=== PATIENT | female | born 1955 | race Caucasian/White ===

== ENCOUNTER → 2016-07-17 | Outpatient (CLI) | payer OTHER ==
[~2016-07-17] MED LIST: AMARYL PO; ASPIRIN81 MG PO; COZAAR100 MG PO; HYDROCHLOROTHIA25 MG PO; METOPROLOL SUCC50 MG PO; NORVASC10 MG PO; OMEPRAZOLE40 M1 PO; PAXIL40 MG PO; VICTOZA0.6 MG/0.1 SQ; VOLTAREN75 MG PO
--- NOTE | ~2016-07-17 | MR103 ---
[facility] A Service [facility] RADIOLOGY TEXT RESULTS PATIENT: ALONA FLORES LOCATION: [facility] : 59 UNIT #: [id number] AGE: [address]: Riky Burton MD SEX: F ORDER DR: [id number] [address] [address] [id number] O MR#: [id number] Acc #: [id number] NAME: ALONA FLORES : 1955 SEX: F STUDY DATE/TIME: 07/17/2016 18:22 UNIT: [facility] ROOM: STUDY DESCRIPTION: MR Knee Wo Contrast Lt Attending Physician: Riky Burton M.D. Ordering Physician: Riky Burton M.D. Primary Care Physician: Riky Burton M.D. MRI CENTER REPORT This report is preliminary unless electronic signature is present. EXAM Left knee MRI without contrast 07/17/2016 HISTORY 60-year-old female with left knee pain and locking for 8 months. No prior left knee surgery. COMPARISON Left knee x-rays 02/25/2016. TECHNIQUE Routine unenhanced multiplanar, multisequence high field MR imaging of the left knee was performed. FINDINGS There is a longitudinal horizontal oblique superior surface tear of the posterior horn and posterior body segment of the medial meniscus. Lateral meniscus is intact. Cruciate and collateral ligaments are intact. Extensor mechanism is intact. Small joint effusion. No significant popliteal cyst. 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 Femoral trochlea articular cartilage intact. Lateral compartment articular cartilage is intact. There is moderate grade chondral thinning along the weightbearing surfaces in the medial compartment. Bone marrow signal is otherwise within expected limits. Visualized musculature is unremarkable. [facility] A Service [facility] RADIOLOGY TEXT RESULTS PATIENT: ALONA FLORES LOCATION: [facility] : 59 UNIT #: [id number] AGE: [address]: Riky Burton MD SEX: F ORDER DR: IMPRESSION 1. Longitudinal horizontal oblique superior surface tear posterior horn and posterior body segment medial meniscus. 2. No acute ligament injury. 3. 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 4. Generalized moderate grade chondral thinning along the weightbearing surfaces of the medial compartment. 5. Small joint effusion. Dictated by... Andreas Meng M.D. THIS IS AN ELECTRONICALLY VERIFIED REPORT Andreas Meng M.D. at 07/21/2016 2:34 PM KEVEN/kaity TD: 07/20/2016 10:34 JOB #: [id number] MRI CENTER REPORT Page 1 of 1
== END | disposition home or self-care (01) ==
LOC: SMRI 17:51
DX: M25.562 Pain in left knee (principal); M23.222 Derangement of posterior horn of medial meniscus due to old tear or injury, left knee; M22.42 Chondromalacia patellae, left knee; M25.462 Effusion, left knee
CPT/HCPCS: 73721